=== PATIENT | male | born 1940 | race Caucasian/White ===

== ENCOUNTER 2018-02-03 18:48 | Emergency (ER) | payer MEDICARE, OTHER ==
[~2018-02-03] VITALS: Ht 172.7 cm; Wt 67.0 kg
[~2018-02-03 18:48] MED LIST: ALLO100T PO; COUM5TAB PO; COZA100T PO; SIMV20TA PO
[2018-02-03 19:10] VITALS: BP 128/59; PULSE 97; RESP 17; TEMP 103.2; O2SAT 100
[2018-02-03] MEDS ORDERED: ALLO100T PO (19:24)
[2018-02-03] MEDS ORDERED: SIMV20TA PO (19:24)
[2018-02-03] MEDS ORDERED: LOSA100T PO (19:24)
[2018-02-03] MEDS ORDERED: TAMS0.4C4 PO (19:24)
[2018-02-03] MEDS ORDERED: OMEP20TA93 PO (19:24)
[2018-02-03] MEDS ORDERED: ASPI81CH6 CHEW (19:24)
[2018-02-03] MEDS ORDERED: SODIUM CHLOR 0.9% 1000 ML INJ 1,000 ML IV SCH (19:34)
--- NOTE | 2018-02-03 19:39 | PD ---
HPI Chief Complaint: Abdominal Pain Time Seen by Provider: 19:27 Travel History International Travel<30 days: No Contact w/Intl Traveler<30days: No Traveled to known affect area: No History of Present Illness HPI 77-year-old male presents to the emergency department via EMS for evaluation of left lower quadrant abdominal pain. Patient states his pain started this morning. He had a large bowel movement around noon which should actually help his pain. He states he has had chills. His fever is 103.2 upon arrival to the exam room. He does report history of diverticulosis and diverticulitis. He had a history of a cecal resection. Patient denies any cough or congestion. No chest pain or shortness of breath. Patient currently rates the pain 3/10 in the left lower quadrant without radiation, aching. No exacerbating or alleviating factors. Moderate severity PFSH Past Medical History Arthritis: Yes Heart Rhythm Problems: No Cancer: No Cardiovascular Problems: Yes High Cholesterol: Yes Chest Pain: No Congestive Heart Failure: No Diminished Hearing: No Endocrine: No Gastrointestinal Disorders: Yes (DIVERTICULOSIS) Genitourinary: No Hypertension: Yes Immune Disorder: No Implanted Vascular Access Dvce: No Musculoskeletal: Yes Neurologic: No Psychiatric: No Reproductive: No Respiratory: Yes Sleep Apnea: No Past Surgical History Abdominal Surgery: No (CECAL RESECTION, POLYP REMOVAL) Cardiac Surgery: No Ear Surgery: No Endocrine Surgery: No Eye Surgery: No Genitourinary Surgery: No Gynecologic Surgery: No Neurologic Surgery: No Oral Surgery: Yes (TONSILLECTOMY) Thoracic Surgery: No Tonsillectomy: Yes Other Surgery: Yes (COLON POLOP REMOVED) Social History Alcohol Use: Yes (OCC) Tobacco Use: No Substance Use: No Allergies-Medications (Allergen,Severity, Reaction): Coded Allergies: No Known Allergies (Unverified , 03/13/12) Reported Meds & Prescriptions Reported Meds & Active Scripts Active Reported Tamsulosin (Tamsulosin HCl) 0.4 Mg Cap 0.4 Mg PO HS Simvastatin 20 Mg Tab 20 Mg PO DAILY Allopurinol 100 Mg Tab 100 Mg PO DAILY Losartan (Losartan Potassium) 100 Mg Tab 100 Mg PO DAILY Omeprazole 20 Mg Tab 20 Mg PO DAILY Aspirin Low Dose (Aspirin) 81 Mg Chew 81 Mg CHEW DAILY Review of Systems Except as stated in HPI: all other systems reviewed are Neg Physical Exam Narrative GENERAL: Well-nourished, well-developed elderly male patient, temp of 103.2 SKIN: Focused skin assessment warm/dry. HEAD: Normocephalic. Atraumatic. EYES: No scleral icterus. No injection or drainage. NECK: Supple, trachea midline. No JVD or lymphadenopathy. CARDIOVASCULAR: Regular rate and rhythm without murmurs, gallops, or rubs. RESPIRATORY: Breath sounds equal bilaterally. No accessory muscle use. Lung sounds are clear to auscultation. GASTROINTESTINAL: Abdomen soft and nondistended. Patient has tenderness to palpation over the left lower quadrant. MUSCULOSKELETAL: No cyanosis, or edema. BACK: Nontender without obvious deformity. No CVA tenderness. Data Data Last Documented VS Vital Signs Date Time Temp Pulse Resp B/P (MAP) Pulse Ox O2 Delivery O2 Flow Rate FiO2 02/03/18 22:30 98.6 79 17 104/53 (70) 97 Room Air Orders Orders Complete Blood Count With Diff (02/03/18 19:34) Comprehensive Metabolic Panel (02/03/18 19:34) Lipase (02/03/18 19:34) Lactic Acid (02/03/18 19:34) Prothrombin Time / Inr (Pt) (02/03/18 19:34) Act Partial Throm Time (Ptt) (02/03/18 19:34) Urinalysis - C+S If Indicated (02/03/18 19:34) Ct Abd/Pel W Iv Contrast(Rout) (02/03/18 19:34) Iv Access Insert/Monitor (02/03/18 19:34) Ecg Monitoring (02/03/18 19:34) Oximetry (02/03/18 19:34) Ondansetron Inj (Zofran Inj) (02/03/18 19:45) Sodium Chlor 0.9% 1000 Ml Inj (Ns 1000 M (02/03/18 19:34) Sodium Chloride 0.9% Flush (Ns Flush) (02/03/18 19:45) Blood Culture (02/03/18 19:34) Acetaminophen (Tylenol) (02/03/18 19:45) Iohexol 350 Inj (Omnipaque 350 Inj) (02/03/18 22:21) Ciprofloxacin (Cipro) (02/03/18 22:45) Metronidazole (Flagyl) (02/03/18 22:45) Labs Laboratory Tests Test 02/03/18 19:57 02/03/18 20:08 White Blood Count 8.3 TH/MM3 Red Blood Count 4.57 MIL/MM3 Hemoglobin 14.2 GM/DL Hematocrit 41.0 % Mean Corpuscular Volume 89.7 FL Mean Corpuscular Hemoglobin 31.2 PG Mean Corpuscular Hemoglobin Concent 34.7 % Red Cell Distribution Width 12.9 % Platelet Count 122 TH/MM3 Mean Platelet Volume 8.3 FL Neutrophils (%) (Auto) 89.6 % Lymphocytes (%) (Auto) 3.2 % Monocytes (%) (Auto) 6.8 % Eosinophils (%) (Auto) 0.1 % Basophils (%) (Auto) 0.3 % Neutrophils # (Auto) 7.4 TH/MM3 Lymphocytes # (Auto) 0.3 TH/MM3 Monocytes # (Auto) 0.6 TH/MM3 Eosinophils # (Auto) 0.0 TH/MM3 Basophils # (Auto) 0.0 TH/MM3 CBC Comment DIFF FINAL Differential Comment Prothrombin Time 11.5 SEC Prothromb Time International Ratio 1.1 RATIO Activated Partial Thromboplast Time 25.4 SEC Blood Urea Nitrogen 19 MG/DL Creatinine 1.38 MG/DL Random Glucose 106 MG/DL Total Protein 6.5 GM/DL Albumin 3.3 GM/DL Calcium Level 8.7 MG/DL Alkaline Phosphatase 74 U/L Aspartate Amino Transf (AST/SGOT) 14 U/L Alanine Aminotransferase (ALT/SGPT) 18 U/L Total Bilirubin 1.6 MG/DL Sodium Level 138 MEQ/L Potassium Level 3.6 MEQ/L Chloride Level 102 MEQ/L Carbon Dioxide Level 25.6 MEQ/L Anion Gap 10 MEQ/L Estimat Glomerular Filtration Rate 50 ML/MIN Lactic Acid Level 1.0 mmol/L Lipase 118 U/L Urine Color YELLOW Urine Turbidity CLEAR Urine pH 6.5 Urine Specific [place] 1.019 Urine Protein TRACE mg/dL Urine Glucose (UA) NEG mg/dL Urine Ketones 10 mg/dL Urine Occult Blood TRACE Urine Nitrite NEG Urine Bilirubin NEG Urine Urobilinogen 2.0 MG/DL Urine Leukocyte Esterase NEG Urine RBC 5 /hpf Urine WBC 1 /hpf Urine Squamous Epithelial Cells <1 /hpf Urine Bacteria RARE /hpf Microscopic Urinalysis Comment CULT NOT INDICATED MDM Medical Decision Making Medical Screen Exam Complete: Yes Emergency Medical Condition: Yes Medical Record Reviewed: Yes Interpretation(s) CT abdomen/pelvis - CONCLUSION: 1. Acute diverticulitis distal left colon without abscess, obstruction, free fluid or free air. There is extensive colonic diverticulosis. 2. Postoperative cholecystectomy with mild biliary ductal dilatation. Differential Diagnosis Diverticulitis versus diverticular abscess versus UTI versus sepsis Narrative Course 77-year-old male presents to the emergency department for evaluation the left lower quadrant abdominal pain, fever. CBC, CMP, lipase, lactic acid, PTT, PT/ INR, UA, blood cultures 2 are ordered and pending. CT abdomen/pelvis with IV contrast is ordered and pending. Patient is given normal saline 1 L IV bolus, Zofran 4 mg IV, Tylenol 650 mg p.o. CBC shows no acute abnormality. CMP shows BUN 19, creatinine 1.38, bilirubin 1.6. Lipase is 118. Lactic acid is 1.0. Coags are unremarkable. UA is negative for acute infection. CT abdomen/pelvis shows acute diverticulitis distal left colon without abscess, obstruction, free fluid or free air. There is extensive colonic diverticulosis. Upon reassessment, patient states he is feeling better. He wishes to go home. Patient is started on Cipro and Flagyl. He is given his first dose here will be discharged with prescriptions for the same. He verbalizes agreement. He is to have a low threshold to return for any acute worsening of symptoms. The patient was discharged in stable condition with instructions, including return instructions and follow up instructions. Diagnosis Primary Impression: Diverticulitis Referrals: Primary Care Physician call for appointment Patient Instructions: Diverticulitis (ED), Diverticulitis Diet (ED), General Instructions Additional Instructions: Take antibiotics as directed until gone. Do not drink any alcohol while taking Flagyl. [id number] Tylenol every 4 hours as needed for fever. Follow-up with a primary care physician. Return to the emergency department for any acute worsening of symptoms. Med/Other Pt SpecificInfo: Prescription(s) given Scripts Metronidazole (Flagyl) 500 Mg Tab 500 MG PO TID for Infection for 10 Days, TAB 0 Refills Prov: Evelyn Sneed 02/03/18 Ciprofloxacin (Cipro) 500 Mg Tab 500 MG PO BID for Infection for 10 Days, #20 TAB 0 Refills Prov: Evelyn Sneed 02/03/18 Disposition: DISCHARGE HOME Condition: Stable Evelyn Sneed Feb 03, 2018 19:39
[2018-02-03] MEDS ORDERED: SODIUM CHLORIDE 0.9% FLUSH 10 ML FLUSH IV FLUSH PRN (19:45)
[2018-02-03] MEDS ORDERED: ACETAMINOPHEN 325 MG TAB PO ONE (19:45)
[2018-02-03] MEDS ORDERED: ONDANSETRON HCL 4 MG/2 ML VIAL IVP ONE (19:45)
[2018-02-03 19:55] VITALS: TEMP 99.9
[2018-02-03 20:31] LABS: AUTOMATED NEUTROPHIL # 7.4 TH/MM3 (1.8-7.7); BASOPHIL % 0.3 % (0.0-2.0); EOSINOPHIL % 0.1 % (0.0-4.0); HEMOGLOBIN 14.2 GM/DL (13.0-17.0); LYMPH % 3.2 % (9.0-44.0); LYMPHOCYTE # 0.3 TH/MM3 (1.0-4.8); MEAN CELL VOLUME 89.7 FL (80.0-100.0); MEAN CORPUSCULAR HEMOGLOBIN 31.2 PG (27.0-34.0); MEAN CORPUSCULAR HGB CONC 34.7 % (32.0-36.0); MEAN PLATELET VOLUME 8.3 FL (7.0-11.0); MONO % 6.8 % (0.0-8.0); MONOCYTE # 0.6 TH/MM3 (0-0.9); NEUT % 89.6 % (16.0-70.0); PLATELET COUNT 122 TH/MM3 (150-450); RED BLOOD COUNT 4.57 MIL/MM3 (4.50-5.90); RED CELL DISTRIBUTION WIDTH 12.9 % (11.6-17.2); WHITE BLOOD COUNT 8.3 TH/MM3 (4.0-11.0)
[2018-02-03 20:39] LABS: BACTERIA, URINE RARE /hpf; BILIRUBIN, URINE NEG (NEG); BLOOD, URINE TRACE (NEG); GLUCOSE,URINE NEG (NEG); KETONE, URINE 10 mg/dL (NEG); NITRITE,URINE NEG (NEG); PH, URINE 6.5 (5.0-8.5); SQUAMOUS EPITHELIAL CELL URINE <1 /hpf (0-5); URINE COLOR YELLOW (YELLW/STRAW); URINE LEUKOCYTE ESTERASE NEG (NEG)
[2018-02-03 20:45] LABS: ALBUMIN 3.3 GM/DL (3.4-5.0); AST (GOT) 14 U/L (15-37); BICARBONATE 25.6 MEQ/L (21.0-32.0); BLOOD UREA NITROGEN 19 MG/DL (7-18); CALCIUM 8.7 MG/DL (8.5-10.1); CHLORIDE 102 MEQ/L (98-107); CREATININE 1.38 MG/DL (0.60-1.30); GLOMERULAR FILTRATION RATE 50 ML/MIN (>89); GLUCOSE,RANDOM 106 MG/DL (74-106); SODIUM (NA) 138 MEQ/L (136-145)
[2018-02-03 20:47] LABS: ALT (GPT) 18 U/L (12-78)
[2018-02-03 20:49] LABS: ALKALINE PHOSPHATASE 74 U/L (45-117); TOTAL BILIRUBIN ADULT 1.6 MG/DL (0.2-1.0); TOTAL PROTEIN 6.5 GM/DL (6.4-8.2)
[2018-02-03 20:55] LABS: INTERNATIONAL NORMALIZED RATIO 1.1 RATIO; PROTHROMBIN TIME - PATIENT 11.5 SEC (9.8-11.6)
[2018-02-03] MEDS ORDERED: IOHEXOL 350 MG/ML 10 ML VIAL (for RAD DIAG) IVCONTRAST ONE (22:21)
[2018-02-03 22:30] VITALS: BP 104/53; PULSE 79; RESP 17; TEMP 98.6; O2SAT 97
--- NOTE | 2018-02-03 22:32 | RADRPT ---
EXAM DATE/TIME: 02/03/2018 22:16 [facility] COMPARISON: No previous studies available for comparison. INDICATIONS : Left lower quadrant pain. IV CONTRAST: 95 cc Omnipaque 350 (iohexol) IV ORAL CONTRAST: No oral contrast ingested. RADIATION DOSE: 6.88 CTDIvol (mGy) MEDICAL HISTORY : Hypertension. Cardiovascular disease Diverticulosis. SURGICAL HISTORY : Colon resection. ENCOUNTER: Initial ACUITY: 1 day PAIN SCALE: 7/10 LOCATION: Left lower quadrant TECHNIQUE: Volumetric scanning of the abdomen and pelvis was performed. Using automated exposure control and ad justment of the mA and/or kV according to patient size, radiation dose was kept as low as reasonably achievable to obtain optimal diagnostic quality images. DICOM format image data is available electro nically for review and comparison. FINDINGS: There is dependent atelectasis at the lung bases. Postop cholecystectomy. Mild intrahepatic biliary ductal dilatation. Spleen, adrenals and pancreas un remarkable. Bilateral renal cysts. Left renal calcification. Colonic diverticulosis with focal mural thickening and inflammatory change in left lower quadrant alexis racteristic of diverticulitis. No abscess, obstruction, free fluid or free air. CONCLUSION: 1. Acute diverticulitis distal left colon without abscess, obstruction, free fluid or free air. There is extensive colonic diverticulosis. 2. Postoperative cholecystectomy with mild biliary ductal dilatation. Yury Rand MD on February 03, 2018 at 22:27 Board Certified Radiologist. This report was verified electronically.
[2018-02-03] MEDS ORDERED: METR-1 PO (22:40)
[2018-02-03] MEDS ORDERED: CIPR-9 PO (22:40)
[2018-02-03] MEDS ORDERED: CIPROFLOXACIN 500 MG TAB PO ONE (22:45)
[2018-02-03] MEDS ORDERED: metroNIDAZOLE 500 MG TAB PO ONE (22:45)
== END 2018-02-03 22:53 | disposition home or self-care (01) ==
LOC: NEPC 18:48
DX: K57.92 Diverticulitis of intestine, part unspecified, without perforation or abscess without bleeding (principal); M19.90 Unspecified osteoarthritis, unspecified site; E78.00 Pure hypercholesterolemia, unspecified; I10 Essential (primary) hypertension; Z79.899 Other long term (current) drug therapy
CPT/HCPCS: 74177; 80053; 81001; 83605; 83690; 85025; 85610; 85730; 87040; 96361; 96374; 99284; J2405; J7030; Q9967